=== PATIENT | female | born 1950 | race Hispanic/Latino ===

== ENCOUNTER 2025-01-09 17:01 | Emergency (ER) | payer OTHER ==
[~2025-01-09] VITALS: Ht 142.2 cm; Wt 57.2 kg
[~2025-01-09 17:01] MED LIST: AMLODIPINE BESYL5 MG PO; ASPIRIN EC81 MG PO; FAMOTIDINE20 MG PO; HYDROCODON-ACE1 EA11 PO; IRBESARTAN150 MG PO; METFORMIN HCL500 MG PO; OMEPRAZOLE40 MG PO; POLYETHYLENE GL17 GM PO; PROBIOTIC & AC1 EACH PO; PROTONIX20 MG PO; VITAMIN B-121000 MC2 PO
[2025-01-09 17:13] VITALS: PULSE 71; RESP 16; TEMP 98.2
[2025-01-09 18:22] LABS: BASOPHILS % 0.8 % (0.0-1.0); EOSINOPHILS % 5.1 % (0.0-6.0); LYMPHOCYTES % 48.6 % (18.0-39.1); MONOCYTES % 6.2 % (4.4-11.3); NEUTROPHILS % 39.3 % (38.7-80.0); RED CELL DISTRIBUTION WIDTH 13.9 % (11.7-14.4)
[2025-01-09 18:34] LABS: EST GLOMERULAR FILTRATION RATE 79.0 ML/MIN (>=60)
[2025-01-09] MEDS ORDERED: ENOXAPARIN INJ 80 MG/0.8 ML SYR SC STA (19:11)
[2025-01-09] MEDS ORDERED: ELIQUIS5 MG PO (19:50)
[2025-01-09] MEDS: APIXABAN 5 MG TABLET PO STA (20:00)
[2025-01-09 20:31] VITALS: BP 116/89; O2SAT 99
== END 2025-01-09 20:30 | disposition home or self-care (01) ==
LOC: ER 18:00
DX: T82.868A Thrombosis due to vascular prosthetic devices, implants and grafts, initial encounter (principal); I10 Essential (primary) hypertension; E78.5 Hyperlipidemia, unspecified; K21.9 Gastro-esophageal reflux disease without esophagitis; R94.31 Abnormal electrocardiogram [ECG] [EKG]
CPT/HCPCS: 36415; 71045; 80053; 82550; 83690; 83880; 84484; 85025; 93005; 99284; J1650